=== PATIENT | female | born 1985 | race Caucasian/White ===

== ENCOUNTER 2022-01-04 19:52 | Emergency (ER) | payer OTHER ==
[~2022-01-04] VITALS: Ht 332.7 cm; Wt 79.0 kg
[2022-01-04] MEDS ORDERED: ADENOSINE 3 MG/ML 2ML VIAL IV ONE (20:15)
[2022-01-04] MEDS ORDERED: SODIUM CHLORIDE 0.9% 1,000 ML IV ONE (20:30)
[2022-01-04 21:15] LABS: BASOPHILS % 0.3 % (0.0-2.0); EOSINOPHILS % 0.8 % (0.0-5.0); HEMATOCRIT. 22.6 % (36.0-48.0); HEMOGLOBIN. 7.4 g/dL (12.0-16.0); LYMPHOCYTES % 14.2 % (20.0-50.0); MEAN CORPUSCULAR VOLUME 76.5 fL (81.0-99.0); MONOCYTES % 6.1 % (2.0-8.0); NEUTROPHILS % 78.6 % (40.0-76.0); PLATELET 223 x1000/uL (130-400); RED BLOOD CELL COUNT 2.95 mill/uL (4.2-5.4); RED CELL DISTRIBUTION WIDTH 16.1 % (11.6-14.6)
[2022-01-04 21:22] LABS: CHLORIDE 109 mEq/L (98-107)
[2022-01-04 21:24] VITALS: BP 118/79
[2022-01-04 21:28] LABS: ETHANOL BLOOD < 10 mg/dL; HCG SCREEN NEGATIVE
[2022-01-04] MEDS ORDERED: ONDANSETRON HCL 4MG/2ML INJ IV ONE (21:30)
[2022-01-04 21:31] LABS: PHOSPHORUS 2.5 mg/dL (2.5-4.9)
[2022-01-04 21:33] LABS: T4 FREE 1.01 ng/dL (0.76-1.46)
[2022-01-04] MEDS ORDERED: POTASSIUM CHLORIDE 20MEQ TABLET SR PO ONE (22:30)
[2022-01-04 22:40] LABS: CLARITY URINE CLEAR (CLEAR); COLOR URINE YELLOW (YELLOW); KETONES URINE NEGATIVE (NEGATIVE); LEUKOCYTE ESTERASE URINE NEGATIVE (NEGATIVE); NITRITE URINE NEGATIVE (NEGATIVE); OCCULT BLOOD URINE NEGATIVE (NEGATIVE); PH URINE 6.5 (4.5-8.0); PROTEIN URINE NEGATIVE (NEGATIVE); SPECIFIC GRAVITY URINE 1.012 (1.005-1.030); UROBILINOGEN URINE 0.2 E.U./dL (0.2-1.0)
[2022-01-04] MEDS ORDERED: IRON15TA3 MT (22:46)
[2022-01-04] MEDS ORDERED: MULT-1146 MT (22:46)
== END 2022-01-04 23:25 | disposition home or self-care (01) ==
LOC: ER 19:52
DX: I47.1 Supraventricular tachycardia (principal); D64.9 Anemia, unspecified
CPT/HCPCS: 36415; 71045; 80053; 80320; 81003; 81025; 83735; 83880; 84100; 84439; 84443; 84703; 85025; 93005; 96360; 99291; J0153; J2405; J7030; G0480

== ENCOUNTER 2022-11-16 23:13 | Emergency (ER) | payer OTHER ==
[~2022-11-16] VITALS: Ht 162.6 cm; Wt 70.0 kg
[~2022-11-16 23:13] MED LIST: IRON15TA3 MT; MULT-1146 MT
[2022-11-16] MEDS ORDERED: ADENOSINE 3 MG/ML 2ML VIAL IV ONE (23:45)
[2022-11-17 00:22] LABS: BASOPHILS % 0.5 % (0.0-2.0); EOSINOPHILS % 2.6 % (0.0-5.0); HEMATOCRIT. 26.4 % (36.0-48.0); HEMOGLOBIN. 8.5 g/dL (12.0-16.0); LYMPHOCYTES % 26.2 % (20.0-50.0); MEAN CORPUSCULAR HEMOGLOBIN 25.4 pg (28.0-32.0); MEAN CORPUSCULAR VOLUME 79.4 fL (81.0-99.0); MEAN PLATELET VOLUME 8.4 fl (7.4-10.4); MONOCYTES % 6.5 % (2.0-8.0); NEUTROPHILS % 64.2 % (40.0-76.0); PLATELET 258 x1000/uL (130-400); RED BLOOD CELL COUNT 3.33 mill/uL (4.2-5.4); RED CELL DISTRIBUTION WIDTH 15.9 % (11.6-14.6)
[2022-11-17 00:26] LABS: CHLORIDE 108 mEq/L (98-107)
[2022-11-17 01:30] VITALS: BP 113/73
== END 2022-11-17 01:36 | disposition home or self-care (01) ==
LOC: ER 23:13
DX: I47.1 Supraventricular tachycardia (principal)
CPT/HCPCS: 36415; 80053; 84484; 85025; 93005; 96374; 99291; J0153